=== PATIENT | female | born 1985 | race Caucasian/White ===

== ENCOUNTER 2018-11-19 11:41 | Emergency (ER) | payer OTHER ==
[~2018-11-19] VITALS: Ht 160 cm; Wt 115.5 kg
[~2018-11-19 11:41] MED LIST: ADIPEX-P37.5 MG PO; AMOXICILLIN 50500 MG PO; CEFTIN500 MG PO; CEPHALEXIN250 M1 PO; FLOMAX 0.40.4 MG/CAP PO; METFORMIN500 MG PO; MIRENA52 MG IU; NEXIUM 40MG40 MG PO; NORCO 325 MG-51 TAB PO; PHENERGAN 25 TA25 MG PO; PHENTERMINE15 MG PO; TYLENOL 325MG325 MG PO; ZOFRAN 4MG T4 MG/TAB PO; ZOFRAN ODT4 MG PO
[2018-11-19 12:24] LABS: BASO # 0.1 (0.0-0.2); BASO % 0.6 % (0.0-2.0); EOS # 0.1 (0.0-0.7); EOS % 0.6 % (0-4.0); GRAN % 68.7 % (42.2-75.2); HEMOGLOBIN 13.5 g/dl (12.5-16.0); LYMPH # 2.1 (1.2-3.4); LYMPH % 23.6 % (20.0-51.0); MEAN CELL VOLUME 95 fl (80.0-100.0); MEAN CORPUSCULAR HEMOGLOBIN 31 pg (27.0-31.0); MEAN CORPUSCULAR HGB CONC 33 g/dl (33.0-37.0); MEAN PLATELET VOLUME 9.7 fl (7.4-10.4); MONO # 0.5 (0.1-0.6); MONO % 6.2 % (1.7-9.3); PLATELET COUNT 371 K/mm3 (130-400); RED BLOOD COUNT 4.32 M/mm3 (4.10-5.30); REDCELL DISTRIBUTION WIDTH-CV 12.1 % (11.5-14.5)
[2018-11-19] MEDS ORDERED: GLUCOPHAGE500 MG/TAB PO (12:28)
[2018-11-19] MEDS ORDERED: PRIL40 PO (12:28)
[2018-11-19 12:31] LABS: ALBUMIN 3.8 gm/dL (3.5-5.0); BILIRUBIN,TOTAL 0.2 mg/dL (0.0-1.0); CALCIUM 9.4 mg/dL (8.4-10.2); CREATININE, serum 0.47 (0.52-1.25); POTASSIUM 3.9 mmol/L (3.4-5.0); TOTAL PROTEIN 6.9 gm/dL (6.4-8.2)
[2018-11-19 15:04] VITALS: BP 123/69; PULSE 93; TEMP 98.3
== END 2018-11-19 15:04 | disposition home or self-care (01) ==
LOC: COL.ER 11:41
PROVIDERS: Emergency Medicine
DX: O20.0 Threatened abortion (principal); Z90.49 Acquired absence of other specified parts of digestive tract; Z3A.09 9 weeks gestation of pregnancy; Z79.84 Long term (current) use of oral hypoglycemic drugs

== ENCOUNTER 2019-02-27 16:56 | Outpatient (CLI) | payer OTHER ==
[~2019-02-27] VITALS: Ht 157.5 cm; Wt 111.4 kg
[~2019-02-27 16:56] MED LIST changes: +GLUCOPHAGE500 MG/TAB PO; +PRIL40 PO
--- NOTE | 2019-02-27 17:05 | NUR ---
1705- Patient arrives via wheelchair from ER with complaints of PROM at 1630. Patient reports she noted one episode of lower abdominal cramping and ten minutes later noted SROM for large amount of clear fluid. Patient denies any abdominal cramping or pain since, denies vaginal bleeding and reports normal movement. Large amount of clear fluid noted as patient moves from wheelchair to bed. Patient assisted to bed, FHTs dopplered at 150 bpm for one full minute. 1710- Amniotrace positive. SVE FT/thick/high. Patient repositioned WL and updated on plan of care. 171- Dr. Gutierres notified of patient arrival by Wong Remy RN. Reviewed patient history, report of SROM at 1630, patient denies abdominal pain or vaginal bleeding and reports normal movement. Notified of FHR and SVE. Orders for INT and physician en route to hospital. 1715- INT started by Vishnu Jarrett RN. 1720- Dr. Gutierres at bedside. Bedside ultrasound performed by physician. Discussing plan of care for transfer to [facility]. Patient denies questions and agrees. Orders for Betamethasone IM, Ancef and LR. 1725- Betamethasone 12 mg given, see EMAR. 1730- Ancef infusing, see EMAR. LR infusing per order. Transfer process started. See physician documentation.
[2019-02-27 17:08] VITALS: BP 138/92; PULSE 105; TEMP 98.7
[2019-02-27 17:15] VITALS: BP 138/92; PULSE 105; TEMP 98.7
[2019-02-27 17:30] VITALS: BP 134/81; PULSE 101
[2019-02-27 17:45] VITALS: BP 127/76; PULSE 93
--- NOTE | 2019-02-27 17:58 | NUR ---
FHTs dopplered at 150 bpm. Patient continues to deny abdominal pain.
[2019-02-27 18:05] VITALS: BP 114/71; PULSE 99
--- NOTE | 2019-02-27 18:14 | NUR ---
1814- Report to EMS. Patient escorted off unit by EMS personnel.
== END 2019-02-27 18:15 | disposition short-term general hospital (02) ==
LOC: LDRO 16:56
DX: O42.912 Preterm premature rupture of membranes, unspecified as to length of time between rupture and onset of labor, second trimester (principal); Z3A.23 23 weeks gestation of pregnancy
CPT/HCPCS: J0690; J0702; J7120

== ENCOUNTER → 2021-07-13 | Outpatient (CLI) | payer OTHER | LOC: MC.RAD 07:00 | DX: N63.12 Unspecified lump in the right breast, upper inner quadrant (principal) ==

== ENCOUNTER 2023-05-06 03:17 | Emergency (ER) | payer OTHER ==
[~2023-05-06] VITALS: Ht 160 cm; Wt 102.7 kg
[2023-05-06] MEDS ORDERED: GLUCOTROL 5M5 MG/TAB PO (03:42)
[2023-05-06] MEDS ORDERED: SOLIQUA 100 UNIT3 ML SQ (03:42)
[2023-05-06] MEDS ORDERED: LIPITOR 40MG TA40 MG PO (03:49)
[2023-05-06 04:07] LABS: HEMATOCRIT 51.2 % (37.0-47.0); HEMOGLOBIN 16.9 g/dl (12.5-16.0); MEAN CELL VOLUME 96 fl (80.0-100.0); MEAN CORPUSCULAR HEMOGLOBIN 32 pg (27-31); MEAN CORPUSCULAR HGB CONC 33 g/dl (33.0-37.0); MEAN PLATELET VOLUME 10.5 fl (7.4-10.4); PLATELET COUNT 353 K/mm3 (130-400); RED BLOOD COUNT 5.34 M/mm3 (4.10-5.30); REDCELL DISTRIBUTION WIDTH-CV 12.2 % (11.5-14.5)
[2023-05-06 04:24] LABS: ALBUMIN 4.1 gm/dL (3.5-5.0); C-REACTIVE PROTEIN 1.46 mg/dL (0.00-0.50); CALCIUM 9.9 mg/dL (8.4-10.2); CREATININE, serum 0.88 mg/dL (0.57-1.11); TOTAL PROTEIN 7.7 gm/dL (6.2-8.1)
[2023-05-06 04:50] LABS: BAND 22 % (0-10); BASOPHIL 1 % (0-2); LYMPHOCYTE 3 % (20.0-51.0); NEUTROPHILS 69 % (42.0-75.2); PLATELET ESTIMATE NORMAL (NORMAL)
[2023-05-06 07:31] VITALS: TEMP 99.4
[2023-05-06] MEDS ORDERED: ZOFRAN ODT4 MG PO (07:49)
[2023-05-06 08:00] VITALS: BP 123/75; PULSE 117
== END 2023-05-06 08:00 | disposition home or self-care (01) ==
LOC: COL.ER 03:17
PROVIDERS: Emergency Medicine
DX: K52.9 Noninfective gastroenteritis and colitis, unspecified (principal); E11.65 Type 2 diabetes mellitus with hyperglycemia; R00.0 Tachycardia, unspecified; Z79.4 Long term (current) use of insulin
CPT/HCPCS: J0780; J2405; J3010; J7030